=== PATIENT | female | born 1965 | race Two or more races ===

== ENCOUNTER 2019-02-24 03:11 | Inpatient (IN) | payer BC ==
--- NOTE | 2019-02-24 03:50 | PDOC ---
Attending Attestation - Resident Resident Name: Starla Nguyen - ED Attending Attestation I have performed the following: I have examined & evaluated the patient, The case was reviewed & discussed with the resident, I agree w/resident's findings & plan - HPI HPI: 02/24/19 06:56 see resident hpi - Physicial Exam PE: 02/24/19 06:56 agree with resident exam - Medical Decision Making 02/24/19 06:56 53-year-old female with upper abdominal pain after eating CT scan consistent with gallbladder disease and possible cholecystitis We will sign out right upper quadrant ultrasound to dayshift
--- NOTE | 2019-02-24 04:17 | PDOC ---
History of Present Illness - General Chief Complaint: Pain, Acute Stated Complaint: ABD PAIN Time Seen by Provider: 02/24/19 03:43 - History of Present Illness Initial Comments: 02/24/19 04:47 53 year old woman with a history of HTN who presents with diffuse abdominal pain that occurred around 2000 tonight after eating Indonesian food from a restaurant. The patient reports the pain is pressure like and she had one episode of nbnb vomiting. The patient is nonradiating and she is able to keep down water. She has no other complaints at this time. ROS GENERAL/CONSTITUTIONAL: No fever or chills. No weakness. HEAD, EYES, EARS, NOSE AND THROAT: No sore throat. CARDIOVASCULAR: No chest pain or shortness of breath RESPIRATORY: No cough, wheezing, or hemoptysis. GASTROINTESTINAL: + nausea, vomiting, No diarrhea or constipation. GENITOURINARY: No dysuria, frequency, or change in urination. MUSCULOSKELETAL: No joint or muscle swelling or pain. No neck or back pain. SKIN: No rash NEUROLOGIC: No headache, vertigo, loss of consciousness, or change in strength/ sensation. ENDOCRINE: No increased thirst. No abnormal weight change PE GENERAL: Awake, alert, and fully oriented, in no acute distress HEAD: No signs of trauma, normocephalic, atraumatic EYES: EOMI, sclera anicteric, conjunctiva clear ENT: oropharynx clear without exudates. Moist mucosa NECK: Normal ROM, supple, LUNGS: No distress, speaks full sentences, clear to auscultation bilaterally HEART: Regular rate and rhythm, normal S1 and S2, no murmurs, rubs or gallops, peripheral pulses normal and equal bilaterally. ABDOMEN: Soft, +mild LUQ and RUQ ttp, No guarding, no rebound. No masses EXTREMITIES : Normal inspection, Normal range of motion, no edema. No clubbing or cyanosis. NEUROLOGICAL: Cranial nerves II through XII grossly intact. Normal speech, no focal sensorimotor deficits SKIN: Warm, Dry, normal turgor, no rashes or lesions noted MDM DDX including but not limited to: cholelithiasis appendicitis gastroenteritis r/o acs ED Course: EKbpm nsr, no interval abnormalities, narrow QRS, ST and T wave segments and morphology normal. labs wnl CT: cholelithiasis w/ dilated gallbladder lumen and a 2.5cm stone near gallbladder neck Abd US pending will sign out to day team Starla Nguyen PGY2 Emergency Medicine 02/24/19 06:57 Past History - Past Medical History Allergies/Adverse Reactions: Allergies Allergy/AdvReac Type Severity Reaction Status Date / Time No Known Allergies Allergy Verified 02/24/19 03:40 Home Medications: Ambulatory Orders Bisoprolol/Hydrochlorothiazide [Bisoprolol-Hctz 10-6.25 mg Tab] 1 each PO DAILY 12/20/14 Ibuprofen [Motrin -] 600 mg PO QID PRN #30 tablet 02/25/19 Meclizine HCl [Antivert -] 25 mg PO PRN PRN #30 tablet 02/25/19 HTN: Yes - Psycho Social/Smoking Cessation Hx Smoking History: Never smoked Have you smoked in the past 12 months: No Information on smoking cessation initiated: No Hx Alcohol Use: No Drug/Substance Use Hx: No Substance Use Type: None *Physical Exam - Vital Signs Last Vital Signs Temp Pulse Resp BP Pulse Ox 98.7 F 82 20 146/95 98 02/24/19 03:30 02/24/19 03:30 02/24/19 03:30 02/24/19 03:30 02/24/19 03:30 ED Treatment Course - LABORATORY CBC & Chemistry Diagram: 02/25/19 10:50 02/25/19 10:50 Discharge - Discharge Information Problems reviewed: Yes Clinical Impression/Diagnosis: Biliary colic Cholelithiasis Qualifiers: Cholelithiasis location: gallbladder Cholecystitis presence: without cholecystitis Biliary obstruction: without biliary obstruction Qualified Code(s) : K80.20 - Calculus of gallbladder without cholecystitis without obstruction Condition: Improved Disposition: HOME - Follow up/Referral - Patient Discharge Instructions - Post Discharge Activity
[2019-02-24] MEDS ORDERED: ACETAMINOPHEN 1000 MG/100 ML VIAL (NON FORMULARY) IVPB ONE (04:21)
[2019-02-24] MEDS ORDERED: ACETAMINOPHEN INJECTION 100 ML IVPB ONE (04:41)
[2019-02-24 04:58] LABS: BASO % 0.7 % (0-2.0); EOS % 0.3 % (0-4.5); HEMATOCRIT 43.9 % (32.4-45.2); HEMOGLOBIN 14.4 GM/dL (10.7-15.3); LYMPH % 13.9 % (8-40); MCH 27.8 pg (25.7-33.7); MCHC 32.9 g/dl (32.0-36.0); MEAN CELL VOLUME 84.5 fl (80-96); MEAN PLT VOLUME 8.7 fl (7.5-11.1); MONO % 3.9 % (3.8-10.2); NEUT % 81.2 % (42.8-82.8); PLATELET COUNT 319 K/MM3 (134-434); RDW 13.9 % (11.6-15.6); WHITE BLOOD COUNT 12.3 K/mm3 (4.0-10.0)
[2019-02-24 05:30] LABS: ALBUMIN 3.8 g/dl (3.4-5.0); BILIRUBIN,TOTAL 0.6 mg/dL (0.2-1); BLOOD UREA NITROGEN 17.2 mg/dL (7-18); CALCIUM 9.3 mg/dL (8.5-10.1); CREATININE 0.9 mg/dL (0.55-1.3); POTASSIUM 4.1 mmol/L (3.5-5.1)
[2019-02-24] MEDS ORDERED: HYDROmorphone HCL CARPU-JECT 2 MG/1 ML DISP.SYRIN IVPUSH ONE (07:06)
[2019-02-24] MEDS ORDERED: HYDROmorphone HCl 2 MG/ML VIAL ONE (07:13)
--- NOTE | 2019-02-24 07:28 | PDOC ---
*Physical Exam - Vital Signs Last Vital Signs Temp Pulse Resp BP Pulse Ox 98.7 F 82 20 146/95 98 02/24/19 03:30 02/24/19 03:30 02/24/19 03:30 02/24/19 03:30 02/24/19 03:30 - Physical Exam 02/24/19 07:35 Mild HTN, otherwise AF with stable vitals WDW woman, NAD, appears stated age No central cyanosis, well perfused Normal WOB, speaking full sentences, no cough or wheeze Abdomen TTP, mostly RUQ CN grossly intact, Alert and oriented Normal mood and affect ED Treatment Course - LABORATORY CBC & Chemistry Diagram: 02/24/19 04:20 02/24/19 04:20 - ADDITIONAL ORDERS Additional order review: Laboratory Results 02/24/19 02/24/19 04:20 04:20 Sodium 137 Potassium 4.1 Chloride 104 Carbon Dioxide 24 Anion Gap 9 BUN 17.2 Creatinine 0.9 Est GFR (CKD-EPI)AfAm 85.80 Est GFR (CKD-EPI)NonAf 74.03 Random Glucose 145 H Calcium 9.3 Total Bilirubin 0.6 AST 20 ALT 23 Alkaline Phosphatase 71 Troponin I < 0.02 Total Protein 8.0 Albumin 3.8 Lipase 137 Beta HCG, Quant 3.9 02/24/19 04:20 RBC 5.20 MCV 84.5 MCHC 32.9 RDW 13.9 MPV 8.7 Neutrophils % 81.2 Lymphocytes % 13.9 Monocytes % 3.9 Eosinophils % 0.3 Basophils % 0.7 - Medications Given in the ED: ED Medications Discontinued Medications Generic Name Dose Route Start Last Admin Trade Name Laura PRN Reason Stop Dose Admin Acetaminophen 1,000 mg 02/24/19 04:21 02/24/19 04:52 Ofirmev Injection - IVPB 02/24/19 04:22 1,000 mg ONCE ONE Administration Medical Decision Making - Medical Decision Making 02/24/19 07:27 53yo F with cholelithiasis, pending RUQ US to evaluate for cholecystitis. Labs notable only for mild leukocytosis Patient just received 0.5 Dilaudid Complaining of nausea, will give zofran if nausea persists s/p pain control Dispo Pending 02/24/19 09:28 - RUQ US without thickening, distention, fluid, or obstruction - no evidence of acute cholecystitis - Patient with continued pain and tenderness s/p dilaudid and zofran - Given NS @ 125, Made NPO - family aware - Admit for biliary colic / cholelithiasis (PCP: Carie Fuentes) for likely HIDA Scan - Reaching out to Surgery 02/24/19 09:41 - Spoke with Dr. Pedroza who will evaluate the patient - Admit Med/Surg Hospitalist, plan for HIDA Discharge - Discharge Information Problems reviewed: Yes Clinical Impression/Diagnosis: Biliary colic Cholelithiasis Qualifiers: Cholelithiasis location: gallbladder Cholecystitis presence: without cholecystitis Biliary obstruction: without biliary obstruction Qualified Code(s) : K80.20 - Calculus of gallbladder without cholecystitis without obstruction Condition: Guarded - Admission Yes - Follow up/Referral Referrals: Carie Galloway [Primary Care Provider] - - Patient Discharge Instructions - Post Discharge Activity
[2019-02-24] MEDS ORDERED: ONDANSETRON 4 MG/2 ML VIAL IVPUSH ONE ×2 (07:30→08:13)
[2019-02-24] MEDS ORDERED: ONDANSETRON 4 MG/2 ML VIAL ONE (08:13)
[2019-02-24] MEDS ORDERED: SODIUM CHLORIDE 1,000 ML IV SCH ×2 (09:30→11:15)
[2019-02-24] MEDS ORDERED: MORPHINE SULFATE 2 MG/ML VIAL IVPUSH PRN (11:08)
[2019-02-24] MEDS ORDERED: ACETAMINOPHEN 1000 MG/100 ML VIAL (NON FORMULARY) IVPB PRN ×2 (11:10→17:53)
[2019-02-24] MEDS ORDERED: ONDANSETRON 4 MG/2 ML VIAL IVPUSH PRN ×3 (11:11→17:53)
--- NOTE | 2019-02-24 11:46 | HP ---
Hospitalist Medicine Admission 53 y/o Iranian-speaking F with PMH HTN, vertigo who presents for abdominal pain over the past day. Per pt, her sx started yesterday after she ate chicken and potatoes from a restaurant. States this is similar to what she eats normally. Soon after, she developed sharp pain in her RUQ, without radiation. States it was 10/10, colicky and intermittent. Was alleviated by the meds she received in the ED (dilaudid, tylenol). Was also a/w nausea and 1 episode of NBNB emesis. For this reason, pt presented to ED for evaluation. In ED, abd sono revealed gallstones w/o evidence of cholecystitis, and fatty liver vs. hepatocellular dz. On CTAP, pt with mildly distended GB with multiple calculi. Sx was contacted by ER and recommended HIDA. Currently, pt denies PALM, fever, chills, SOB, chest pain or changes in urinary or bowel function. Pt's mother had a lap christa. PMH: as above PsxH: "ovarian sx" meds: as in chart, meclizine PRN, bisoprolol/hctz allergies: NKDA FH: as above, mother - lap christa SH: denies cigarette, alcohol or drug use Allergies No Known Allergies Allergy (Verified 02/24/19 03:40) HOME MEDICATIONS: Home Medications Medication Instructions Recorded Bisoprolol/Hydrochlorothiazide 1 each PO DAILY 12/20/14 [Bisoprolol-Hctz 10-6.25 mg Tab] Meclizine HCl [Antivert -] 25 mg PO PRN PRN 02/24/19 PHYSICAL EXAMINATION Vital Signs - 24 hr 02/24/19 11:33 Temperature 97.8 F Pulse Rate Pulse Rate [ 89 Left Radial] Respiratory 18 Rate Blood Pressure Blood Pressure 125/79 [Right Arm] O2 Sat by Pulse 96 Oximetry (%) general: resting in bed, in NAD HEENT: NCAT neck: supple cardio: S1, S2 RRR. no r/m/g pulm: CTA B/l. no accessory m usage abdomen: +obese, +TTP in RUQ, +christian's, normoactive bowel sounds LE: 2+ pulses, no edema neuro: rn staffing 2-12 grossly intact Laboratory Results - last 24 hr 02/24/19 02/24/1920 04:20 04:20 04:20 WBC 12.3 H RBC 5.20 Hgb 14.4 Hct 43.9 MCV 84.5 MCH 27.8 MCHC 32.9 RDW 13.9 Plt Count 319 MPV 8.7 Absolute Neuts (auto) 10.0 H Neutrophils % 81.2 Lymphocytes % 13.9 Monocytes % 3.9 Eosinophils % 0.3 Basophils % 0.7 Nucleated RBC % 0 Sodium 137 Potassium 4.1 Chloride 104 Carbon Dioxide 24 Anion Gap 9 BUN 17.2 Creatinine 0.9 Est GFR (CKD-EPI)AfAm 85.80 Est GFR (CKD-EPI)NonAf 74.03 Random Glucose 145 H Calcium 9.3 Total Bilirubin 0.6 AST 20 ALT 23 Alkaline Phosphatase 71 Troponin I < 0.02 Total Protein 8.0 Albumin 3.8 Lipase 137 Beta HCG, Quant 3.9 Imaging 02/24/19: CTAP: mild diffuse fatty infiltration of the liver, mildly distended GB with multiple calculi, no additional evidence of acute pathology in abdomen or pelvis 02/24/19: Abd sono: nonvisualization of pancreas due to overlying bowel gas, gallstones without sono evidence of acute christa. fatty liver vs. hepatocellular disease. 02/24/19: EKG: NSR, rate 76bpm, qtc 447ms ASSESSMENT/PLAN: 53 y/o Iranian-speaking F with PMH HTN, vertigo who presents for abdominal pain over the past day. #Cholecystitis, cholelithiasis -with intermittent abdominal pain in RUQ, w/ obesity, family hx of lap christa -w/ evidence of cholelithiasis on imaging -s/p lap christa, lavage, lysis of adhesions - PO Day 0 -f/u a1c, lipid profile -c/w IVF, incentive spirometer -morphine , tylenol, roxicodone PRN for pain per sx -started on zosyn (Day 1) -Sx consult: Dr. Pedroza -ID: Dr. Rubio #HTN- controlled -c/w bisoprolol/HCTZ #vertigo -currently w/o complaint -can hold meclizine for now #F/E/N IV LR 75 cc/hr continue to follow lytes reg diet #PPX DVT: lovenox #Dispo admitted to med-surg Visit type - Emergency Visit Emergency Visit: Yes ED Registration Date: 02/24/19 Care time: The patient presented to the Emergency Department on the above date and was hospitalized for further evaluation of their emergent condition. - New Patient This patient is new to me today: Yes Date on this admission: 02/24/19 - Critical Care Critical Care patient: No
--- NOTE | 2019-02-24 11:50 | EKG ---
Test Reason : Blood Pressure : / mmHG Vent. Rate : 076 BPM Atrial Rate : 076 BPM P-R Int : 166 ms QRS Dur : 102 ms QT Int : 398 ms P-R-T Axes : 043 069 046 degrees QTc Int : 447 ms NORMAL SINUS RHYTHM POSSIBLE LATERAL INFARCT , AGE UNDETERMINED ABNORMAL ECG NO PREVIOUS ECGS AVAILABLE Confirmed by SAVITA BOSWELL MD ([id number]) on 02/24/2019 11:50:06 AM Referred By: Confirmed By:SAVITA BOSWELL MD
[2019-02-24] MEDS ORDERED: fentaNYL CITRATE 250 MCG/5 ML VIAL ONE (12:05)
[2019-02-24] MEDS ORDERED: ROCURONIUM BROMIDE 50 MG/5 ML SYRINGE ONE (12:05)
[2019-02-24] MEDS ORDERED: MIDAZOLAM HCL 2 MG/2 ML SINGLE DOSE VIAL ONE (12:05)
--- NOTE | 2019-02-24 12:39 | OP ---
Operative Note - Note: Operative Date: 02/24/19 Pre-Operative Diagnosis: acute cholecystitis, cholelithiasis Operation: laparoscopic cholecystectomy, lavage, lysis of adhesions Findings: thickened, inflamed gb, omental adhesions to abd wall Post-Operative Diagnosis: Same as Pre-op Surgeon: Clayton Pedroza Air Export Operations Agent: David Cooper Anesthesiologist/CHIEF GREEN OFFICER: Olvin Heredia Anesthesia: General Specimens Removed: gb Estimated Blood Loss (mls): 50 Operative Report Dictated: Yes
[2019-02-24] MEDS ORDERED: oxyCODONE HCL 5 MG TABLET PO PRN (12:40)
[2019-02-24] MEDS ORDERED: morphine SULFATE 4 MG/ML VIAL IVPB PRN (12:40)
[2019-02-24] MEDS ORDERED: LACTATED RINGERS SOLUTION 1,000 ML IV SCH (12:45)
[2019-02-24] MEDS ORDERED: PIPERACILLIN/TAZOBACTAM 3.375 GM VIAL IVPB ONE ×3 (12:49→18:22)
[2019-02-24] MEDS ORDERED: PIPERACILLIN/TAZOB 3.375 GM 3.375 GM in DEXTROSE 5%-WATER - 50 ML IVPB ONE ×2 (13:00→17:53)
--- NOTE | 2019-02-24 13:03 | CONS ---
DATE OF CONSULTATION: 02/24/2019 REASON FOR CONSULTATION: Acute cholecystitis, cholelithiasis. This is an emergency room consultation at the request of the emergency room physician. BRIEF HISTORY: This is a 53-year-old female who presented to [facility] Emergency Room with 1-day history of right upper quadrant abdominal pain, nausea, and vomiting after eating chicken. While there, she had a CAT scan of her abdomen and pelvis, which showed a distended gallbladder with stones. She had an ultrasound done, which also showed gallstones and a distended gallbladder. There was noted no thickening or no pericholecystic fluid. Patient also was noted to have an elevated white blood cell count of 12,000. Her chemistries are unremarkable with normal liver function tests. Request was made for surgical evaluation. PAST MEDICAL HISTORY: Significant for hypertension and vertigo. PAST SURGICAL HISTORY: Includes an ovarian surgery done through a Pfannenstiel incision. FAMILY HISTORY: Significant for a mother who had a cholecystectomy for gallbladder disease. HOME MEDICATIONS: Include meclizine, bisoprolol, and hydrochlorothiazide. ALLERGIES: She has no known drug allergies. SOCIAL HISTORY: Negative for alcohol. Negative for tobacco. REVIEW OF SYSTEMS: General: Denies fatigue or malaise. Cardiac: Denies chest pain or palpitations. Respiratory: No shortness of breath or wheeze. Gastrointestinal: As stated in HPI. Denies blood in her vomit, denies diarrhea, denies recent weight loss, denies blood in her stool. Genitourinary: Denies dysuria. Musculoskeletal: Denies joint pain. Psychiatric: Denies anxiety, depression, or hearing voices. PHYSICAL EXAMINATION: General: This is an obese 53-year-old female in no distress. Vital Signs: She is currently afebrile. HEENT: Her head is normocephalic. Sclerae anicteric. Neck: Supple. Chest: Clear. Abdomen: Soft. She has a well-healed Pfannenstiel incision. She has no obvious hernias. She has significant right upper quadrant tenderness with rebound and guarding. She has minimal tenderness in the epigastrium. Extremities: No clubbing, cyanosis, or edema. DIAGNOSTIC DATA: On review of her laboratory, her white blood cell count is 12.3 without a shift. Her chemistries are unremarkable. Her imaging is as stated in HPI. ASSESSMENT: This is a 53-year-old female with nausea, vomiting, right upper quadrant pain, peritoneal findings in right upper quadrant, leukocytosis and CAT scan as well as ultrasound evidence of gallstones and a distended gallbladder. Clinically, this is acute cholecystitis. RECOMMENDATIONS: Recommend admission to the hospital. Recommend intravenous antibiotics. We will start Zosyn to cover E. coli and other biliary-related new. At this point, because of the patient's persistent pain and pertinent findings, would recommend proceeding with cholecystectomy. I believe she will do poorly with simply medical management. Risks and benefits of surgery have been explained to patient in detail. These are including, but not limited to, the possibility of conversion to open, the possibility of common bile duct injury, the possibility of cystic duct stump leak, the possibility of injury to viscera, the possibility of blood loss requiring blood transfusion, the possibility of future hernia, possibility of future obstruction plus a multitude of medical risks including, but not limited to, cardiac, neurologic, pulmonary, and vascular complications, even . Patient understands these risks and is agreeable to surgery. She states her mother had her gallbladder out, and she wants hers out as well. At this point, we move in the direction of surgery. The patient is also offered medical management as well as percutaneous drainage and declined both options. She prefers a more definitive nature of surgery, likely decreased length of stay, the ability to pathologically evaluate the gallbladder, and the prevention of future recurrence. DO ANNE MARIE DAVISON/[id number]
[2019-02-24] MEDS ORDERED: NEOSTIGMINE METHYLSULFATE 0.5 MG/ML - 10 ML MDV ONE (14:01)
[2019-02-24] MEDS ORDERED: GLYCOPYRROLATE 0.2 MG/1 ML VIAL ONE (14:02)
[2019-02-24] MEDS ORDERED: DEXAMETHASONE SOD PHOSPHATE 4 MG/1 ML VIAL ONE (14:02)
[2019-02-24] MEDS ORDERED: KETOROLAC TROMETHAMINE 30 MG/1 ML VIAL ONE (14:02)
[2019-02-24 14:05] LABS: CHOLESTEROL 198 mg/dL (50-200); HDL CHOLESTEROL 53 mg/dL (40-60); LDL CHOLESTEROL (ONLY SJRH) 128 mg/dL (5-100); LIPASE 149 U/L (73-393); TRIGLYCERIDES 92 mg/dL (0-150)
--- NOTE | 2019-02-24 14:56 | OP ---
DATE OF OPERATION: 02/24/2019 PREOPERATIVE DIAGNOSIS: Acute cholecystitis, cholelithiasis. POSTOPERATIVE DIAGNOSIS: Acute cholecystitis, cholelithiasis. PROCEDURE: Laparoscopic cholecystectomy, lavage, lysis of adhesions. SURGEON: Clayton Pedroza DO BORING MACHINE OPERATOR HORIZONTAL: JARON Oconnor ANESTHESIOLOGIST: Olvin Heredia MD (general) SPECIMEN: Gallbladder. INTRAOPERATIVE FINDINGS: There were omental adhesions to the abdominal wall and a thick and inflamed, edematous gallbladder with large stones consistent with acute cholecystitis. BLOOD LOSS: 50 mL. DRAINS: None. DISPOSITION: To recovery in stable condition. BRIEF HISTORY: This is a 53-year-old female who presented to [facility] Room with complaints and signs and symptoms of acute cholecystitis. She had ultrasound and CAT scan evidence that supported gallstone disease and clinically had acute cholecystitis. She presents now for surgery. She received Zosyn antibiotic prior to incision. DESCRIPTION OF PROCEDURE: The patient was placed in supine position. After general anesthesia was initiated, the abdomen was prepped and draped in a sterile fashion. A transverse incision was made infraumbilical with scalpel used to go through skin and subcutaneous tissue. The fascia was lifted with a Giselle clamp. Veress needle was inserted, and pneumoperitoneum was created. An 11-mm trocar was placed followed by insertion of a 10-mm 0-degree laparoscope. An additional 11-mm trocar was placed subxiphoid, and two 5-mm trocars were placed right upper quadrant. The patient had omentum that was adhesed to near the umbilical trocar site. The camera was switched to the subxiphoid site, and a sharp lysis of adhesion was done in order to get the omentum down in order to enable proper closure of the infraumbilical trocar site. There was also noted to be no bowel involved, just the omentum adhesed to this area. At this point, attention was turned back to the gallbladder. It was thick and inflamed and edematous consistent with acute cholecystitis. Veress needle decompression was done. There was green bile within it. The fundus was lifted cephalad. The infundibulum retracted laterally. The peritoneal peel was dissected down exposing cystic duct with a branch cystic artery. Both were clipped and divided. The gallbladder was then liberated from the liver bed using electrocautery. Hemostasis was maintained using electrocautery. The gallbladder was then placed in a specimen bag, removed through the infraumbilical trocar site. There was significant skin lengthening and fascial dilatation required in order to deliver this gallbladder. A vigorous lavage was done, and all return was clear. There was no bleeding noted. Trocars were removed under direct visualization as pneumoperitoneum was released. The fascia of the infraumbilical trocar site was closed with multiple interrupted 0 Vicryl sutures. The 4 skin incisions were closed with Biosyn, Dermabond dressing was placed. Overall, the patient tolerated the procedure well. No complications. The operation was terminated. DO ANNE MARIE DAVISON/[id number] MTDD
--- NOTE | 2019-02-24 15:28 | SURG ---
Surgery Legal Recruiter Note Legal Recruiter: David Cooper PA-C Date of Service: 02/24/19 Diagnosis: acute cholecystitis, cholelithiasis Procedure: laparoscopic cholecystectomy, lavage, lysis of adhesions I was present for the entirety of the operative procedure. For further detail, please refer to operative report. Visit type - Case Type Case Type: ED Admission - Emergency Emergency Visit: Yes ED Registration Date: 02/24/19 Care time: The patient presented to the Emergency Department on the above date and was hospitalized for further evaluation of their emergent condition. - New patient This patient is new to me today: Yes Date on this admission: 02/24/19 - Critical Care Critical Care patient: No
[2019-02-24] MEDS ORDERED: PIPERACILLIN/TAZOB 3.375 GM 3.375 GM in DEXTROSE 5%-WATER - 50 ML IVPB SCH (18:00)
[2019-02-24] MEDS ORDERED: DEXTROSE 5%-WATER - 50 ML IVPB ONE (18:23)
[2019-02-24] MEDS: SODIUM CHLORIDE 1,000 ML IV SCH (18:26)
--- NOTE | 2019-02-24 19:33 | PN ---
Teaching Attending Note Name of Resident: Bronwyn Bowman ATTENDING PHYSICIAN STATEMENT I saw and evaluated the patient. I reviewed the resident's note and discussed the case with the resident. I agree with the resident's findings and plan as documented. SUBJECTIVE: Seen and examined at bedside. Tired post-op OBJECTIVE: Vital Signs - 24 hr 02/24/19 02/24/19 02/24/19 03:30 07:16 07:29 Temperature 98.7 F 98 F Pulse Rate 82 Pulse Rate [ 78 Left Radial] Respiratory 20 18 Rate Blood Pressure 146/95 Blood Pressure 138/83 [Right Arm] O2 Sat by Pulse 98 100 100 Oximetry (%) 02/24/19 02/24/19 02/24/19 11:33 14:48 15:05 Temperature 97.8 F 98.1 F Pulse Rate 72 72 Pulse Rate [ 89 Left Radial] Respiratory 18 22 H 20 Rate Blood Pressure 142/74 127/62 Blood Pressure 125/79 [Right Arm] O2 Sat by Pulse 96 93 L 95 Oximetry (%) 02/24/19 02/24/19 02/24/19 15:20 15:35 15:50 Temperature Pulse Rate 60 63 69 Pulse Rate [ Left Radial] Respiratory 20 21 H 23 H Rate Blood Pressure 128/71 119/78 123/75 Blood Pressure [Right Arm] O2 Sat by Pulse 97 99 95 Oximetry (%) 02/24/19 02/24/19 02/24/19 16:05 16:20 16:35 Temperature Pulse Rate 78 63 86 Pulse Rate [ Left Radial] Respiratory 18 20 22 H Rate Blood Pressure 120/79 130/79 119/73 Blood Pressure [Right Arm] O2 Sat by Pulse 93 L 93 L 94 L Oximetry (%) 02/24/19 02/24/19 02/24/19 16:50 17:05 17:14 Temperature 98 F Pulse Rate 79 62 82 Pulse Rate [ Left Radial] Respiratory 18 17 17 Rate Blood Pressure 127/79 120/77 122/82 Blood Pressure [Right Arm] O2 Sat by Pulse 95 95 95 Oximetry (%) 02/24/19 18:00 Temperature 98.4 F Pulse Rate 83 Pulse Rate [ Left Radial] Respiratory 20 Rate Blood Pressure 111/76 Blood Pressure [Right Arm] O2 Sat by Pulse 97 Oximetry (%) PE: Gen: NAD CVS: S1, S2 RRR. no r/m/g Lungs: CTA B/l, unlabored Abd: +obese, RUQ tenderness LE: 2+ pulses, no edema Current Medications Generic Name Dose Route Start Last Admin Trade Name Freq PRN Reason Stop Dose Admin Acetaminophen 1,000 mg 02/24/19 17:53 02/24/19 18:37 Ofirmev Injection - IVPB 1,000 mg Q6H PRN Administration PAIN LEVEL 4 - 6 Enoxaparin Sodium 40 mg 02/25/19 10:00 Lovenox - SQ DAILY [facility] Fentanyl 50 mcg 02/24/19 12:39 Sublimaze Injection - IVPUSH [id number] PRN PAIN-PACU ORDER X 4 DOSES ONLY Lactated Ringer's 1,000 mls @ 75 mls/hr 02/24/19 12:45 02/24/19 18:38 Lactated Ringers Solution IV Not Given [facility] Piperacillin Sod/Tazobactam 50 mls @ 100 mls/hr 02/24/19 18:00 Sod 3.375 gm/ Dextrose IVPB 02/25/19 10:29 Q8H-IV [facility] Protocol Sodium Chloride 1,000 mls @ 100 mls/hr 02/24/19 17:53 02/24/19 18:26 Normal Saline - IV 100 mls/hr ASDIR DAMIEN Administration Morphine Sulfate 8 mg 02/24/19 12:40 Morphine Sulfate IVPB Q3H PRN PAIN LEVEL 7 - 10 Non-Formulary Medication 1 each 02/25/19 10:00 Bisoprolol/Hydrochlorothiazide [Bisoprolol-Hctz 10-6.25 Mg Tab] PO DAILY [facility] Ondansetron HCl 4 mg 02/24/19 12:39 Zofran Injection IVPUSH Q6H PRN NAUSEA AND/OR VOMITING Ondansetron HCl 4 mg 02/24/19 17:53 Zofran Injection IVPUSH Q8H PRN NAUSEA Oxycodone HCl 7.5 mg 02/24/19 12:40 Roxicodone - PO Q4H PRN PAIN LEVEL 4 - 6 Pantoprazole Sodium 40 mg 02/25/19 10:00 Protonix Iv IVPUSH DAILY [facility] Laboratory Tests 02/24/19 02/24/19 02/24/19 04:20 04:20 04:20 WBC 12.3 H RBC 5.20 Hgb 14.4 Hct 43.9 MCV 84.5 MCH 27.8 MCHC 32.9 RDW 13.9 Plt Count 319 MPV 8.7 Absolute Neuts (auto) 10.0 H Neutrophils % 81.2 Lymphocytes % 13.9 Monocytes % 3.9 Eosinophils % 0.3 Basophils % 0.7 Nucleated RBC % 0 Sodium 137 Potassium 4.1 Chloride 104 Carbon Dioxide 24 Anion Gap 9 BUN 17.2 Creatinine 0.9 Est GFR (CKD-EPI)AfAm 85.80 Est GFR (CKD-EPI)NonAf 74.03 Random Glucose 145 H Hemoglobin A1c % Calcium 9.3 Total Bilirubin 0.6 AST 20 ALT 23 Alkaline Phosphatase 71 Troponin I < 0.02 Total Protein 8.0 Albumin 3.8 Triglycerides 92 Cholesterol 198 Total LDL Cholesterol 128 H HDL Cholesterol 53 Lipase 137 149 Beta HCG, Quant 3.9 Blood Type Antibody Screen 02/24/19 02/24/19 04:20 12:25 WBC RBC Hgb Hct MCV MCH MCHC RDW Plt Count MPV Absolute Neuts (auto) Neutrophils % Lymphocytes % Monocytes % Eosinophils % Basophils % Nucleated RBC % Sodium Potassium Chloride Carbon Dioxide Anion Gap BUN Creatinine Est GFR (CKD-EPI)AfAm Est GFR (CKD-EPI)NonAf Random Glucose Hemoglobin A1c % 6.1 Calcium Total Bilirubin AST ALT Alkaline Phosphatase Troponin I Total Protein Albumin Triglycerides Cholesterol Total LDL Cholesterol HDL Cholesterol Lipase Beta HCG, Quant Blood Type A POSITIVE Antibody Screen Negative All imaging reports reviewed ASSESSMENT AND PLAN: 53 y/o F with PMH HTN, vertigo who presents for abdominal pain x 1 day 1) Acute cholecystitis -POD #1 lap christa, lysis of adhesions -iv abx -pain control/antiemetics -PPI -IVF -surgery eval post op appreciated -ID following HTN Vertigo -resume home meds
[2019-02-24 20:23] VITALS: BMI 32.8
[2019-02-24] MEDS ORDERED: FLU VACCINE QUAD 60 MCG/0.5 ML (MDV 19-20) IM ONE (21:30)
[2019-02-25] MEDS: SODIUM CHLORIDE 1,000 ML IV SCH (03:43)
--- NOTE | 2019-02-25 08:20 | PN ---
Progress Note (short form) - Note Progress Note: GENERAL SURGERY POD #1 s/p laparoscopic cholecystectomy, lavage, lysis of adhesions Alert. C/o mild incisional tenderness. Adequate pain control with medications ordered. She is OOB and ambulating unassisted. Voiding spontaneously. Tolerating PO diet. Denies n/v/f/c, CP, SOB or SUAREZ. AVSS. Afebrile. Gen: nad ABD: obese habitus. All surgical ports c/d/i. No hematomas. LE: soft, supple, nt. Problem List - Problems (1) Cholelithiasis Assessment/Plan: POD #1 s/p laparoscopic cholecystectomy, lavage, lysis of adhesions patient is cleared for DC from surgical standpoint. Patient to f/u w/ Dr. Pedroza as outlined in DC PLAN. On behalf of Dr. Pedroza, thank you for the opportunity to participate in your patient's care. Code(s): K80.20 - CALCULUS OF GALLBLADDER W/O CHOLECYSTITIS W/O OBSTRUCTION Qualifiers: Cholelithiasis location: gallbladder Cholecystitis presence: without cholecystitis Biliary obstruction: without biliary obstruction Qualified Code(s): K80.20 - Calculus of gallbladder without cholecystitis without obstruction (2) Biliary colic Code(s): K80.50 - CALCULUS OF BILE DUCT W/O CHOLANGITIS OR CHOLECYST W/O OBST
--- NOTE | 2019-02-25 09:41 | CON.ID ---
Consult Consult Specialty:: infectious diseases Referred by:: Reason for Consultation:: choleycystitis - History of Present Illness Chief Complaint: abd pain History of Present Illness: 53 y/o Upper Sorbian-speaking F with PMH HTN, vertigo who presents for abdominal pain over the past day. Per pt, her sx started yesterday after she ate chicken and potatoes from a restaurant. States this is similar to what she eats normally. Soon after, she developed sharp pain in her RUQ, without radiation. States it was 10/10, colicky and intermittent. patient was worked up and found to ahve choleycystitis was seen by surgery team and taken to the operating room and was operated post op - History Source History Provided By: Patient, Family Member Limitations to Obtaining History: Language Barrier - Past Medical History ...: No - Alcohol/Substance Use Hx Alcohol Use: No - Smoking History Smoking history: Never smoked Have you smoked in the past 12 months: No Home Medications - Allergies Allergies/Adverse Reactions: Allergies Allergy/AdvReac Type Severity Reaction Status Date / Time No Known Allergies Allergy Verified 02/24/19 03:40 - Home Medications Home Medications: Ambulatory Orders Bisoprolol/Hydrochlorothiazide [Bisoprolol-Hctz 10-6.25 mg Tab] 1 each PO DAILY 12/20/14 Meclizine HCl [Antivert -] 25 mg PO PRN PRN 02/24/19 Review of Systems - Review of Systems Constitutional: reports: No Symptoms Eyes: reports: No Symptoms HENT: reports: No Symptoms Neck: reports: No Symptoms Cardiovascular: reports: No Symptoms Respiratory: reports: No Symptoms Gastrointestinal: reports: Abdominal Pain Genitourinary: reports: No Symptoms Musculoskeletal: reports: No Symptoms Integumentary: reports: No Symptoms Neurological: reports: No Symptoms Endocrine: reports: No Symptoms Hematology/Lymphatic: reports: No Symptoms Psychiatric: reports: No Symptoms Physical Exam Vital Signs: Vital Signs Temperature 98.5 F 02/25/19 09:00 Pulse Rate 87 02/25/19 09:00 Respiratory Rate 18 02/25/19 09:00 Blood Pressure 119/79 02/25/19 09:00 O2 Sat by Pulse Oximetry (%) 100 02/24/19 20:41 Constitutional: Yes: Well Nourished, No Distress, Calm HENT: Yes: Atraumatic, Normocephalic Cardiovascular: Yes: Regular Rate and Rhythm Respiratory: Yes: Regular, CTA Bilaterally Breast(s): Yes: Gynecomastia Extremities: Yes: WNL Wound/Incision: Yes: Dressing Dry and Intact Neurological: Yes: Alert, Oriented Psychiatric: Yes: Alert, Oriented Labs: CBC, BMP 02/24/19 04:20 02/24/19 04:20 Imaging - Results Cat Scan: Report Reviewed, Image Reviewed Ultrasound: Report Reviewed, Image Reviewed Assessment/Plan 53 y/o F with PMH HTN, vertigo who presents for abdominal pain x 1 day 1) Acute cholecystitis HTN Vertigo plan if patient tolerates food can stop abx d/w surgery on status of gal bladder if needed can switch to oral on discharge rest as per the team
[2019-02-25] MEDS ORDERED: DOCUSATE SODIUM 100 MG CAPSULE (FP) PO SCH (10:00)
[2019-02-25] MEDS ORDERED: PANTOPRAZOLE SODIUM 40 MG VIAL IVPUSH SCH (10:00)
[2019-02-25] MEDS ORDERED: POLYETHYLENE GLYCOL 3350 119 GM BTL PO SCH (10:00)
[2019-02-25] MEDS ORDERED: ENOXAPARIN NA (PORCINE) 40 MG/0.4 ML DISP.SYRIN SQ SCH (10:00)
[2019-02-25] MEDS ORDERED: PIPERACILLIN/TAZOBACTAM 3.375 GM VIAL IVPB ONE ×2 (10:19→16:57)
[2019-02-25] MEDS ORDERED: DEXTROSE 5%-WATER - 50 ML IVPB ONE ×2 (10:19→16:57)
[2019-02-25] MEDS: PIPERACILLIN/TAZOB 3.375 GM 3.375 GM in DEXTROSE 5%-WATER - 50 ML IVPB SCH ×2 (10:26→17:02)
[2019-02-25 11:51] LABS: BASO % 0.2 % (0-2.0); EOS % 0.1 % (0-4.5); HEMATOCRIT 37.3 % (32.4-45.2); HEMOGLOBIN 12.1 GM/dL (10.7-15.3); LYMPH % 14.7 % (8-40); MCH 27.8 pg (25.7-33.7); MCHC 32.3 g/dl (32.0-36.0); MEAN PLT VOLUME 8.3 fl (7.5-11.1); MONO % 5.4 % (3.8-10.2); NEUT % 79.6 % (42.8-82.8); PLATELET COUNT 253 K/MM3 (134-434); RBC 4.34 M/mm3 (3.60-5.2); RDW 14.4 % (11.6-15.6); WHITE BLOOD COUNT 15.1 K/mm3 (4.0-10.0)
[2019-02-25 12:09] LABS: BLOOD UREA NITROGEN 15.5 mg/dL (7-18); CALCIUM 8.5 mg/dL (8.5-10.1); CREATININE 0.8 mg/dL (0.55-1.3); MAGNESIUM 2.2 mg/dL (1.8-2.4); PHOSPHOROUS 1.5 mg/dL (2.5-4.9); POTASSIUM 3.5 mmol/L (3.5-5.1)
--- NOTE | 2019-02-25 14:33 | PN ---
Teaching Attending Note Name of Resident: Bronwyn Bowman ATTENDING PHYSICIAN STATEMENT I saw and evaluated the patient. I reviewed the resident's note and discussed the case with the resident. I agree with the resident's findings and plan as documented. SUBJECTIVE:No new complain OBJECTIVE:My physical examGENERAL: Well developed, well nourished. Awake and alert. No acute distress. HEENT: Normocephalic, atraumatic. PERRLA, EOMI. No conjunctival pallor. Sclera are non- icteric. Moist mucous membranes. Oropharynx is clear. NECK: Supple. Full ROM. No JVD. Carotid pulses 2+ and symmetric, without bruits. No thyromegaly. No lymphadenopathy. CARDIOVASCULAR: Regular rate and rhythm. No murmurs, rubs, or gallops. Distal pulses are 2+ and symmetric. PULMONARY: No evidence of respiratory distress. Lungs clear to auscultation bilaterally. No wheezing, rales or rhonchi. ABDOMINAL: Soft. Non-tender. Non-distended. No rebound or guarding. No organomegaly. Normoactive bowel sounds. MUSCULOSKELETAL Normal range of motion at all joints. No bony deformities or tenderness. No CVA tenderness. EXTREMITIES: No cyanosis. No clubbing. No edema. No calf tenderness. SKIN: Warm and dry. Normal capillary refill. No rashes. No jaundice. NEUROLOGICAL: Alert, awake, appropriate. Cranial nerves 2-12 intact. No deficits to light touch and temperature in face, upper extremities and lower extremities. No motor deficits in the in face, upper extremities and lower extremities. Normoreflexic in the upper and lower extremities. Normal speech. Toes are down- going bilaterally. Gait is normal without ataxia. PSYCHIATRIC: Cooperative. Good eye contact. Appropriate mood and affect. Patient is status post colonoscopy cholecystectomy she is comfortable no side effect she is eating well. She is going to go home today without antibiotic and Motrin for the pain follow-up with surgery in 1 week
[2019-02-25 14:45] VITALS: BP 130/74; PULSE 83; TEMP 97.4
--- NOTE | 2019-02-25 16:38 | DS ---
Physical Exam: SUBJECTIVE: Patient seen and examined at bedside. In good spirits. [employer] phone used for translation. Has been tolerating diet, and endorses BM. Cleared by surgery for d/c. OBJECTIVE: Vital Signs Period Temp Pulse Resp BP Sys/Cunha Pulse Ox Last 24 Hr 97.4 F-98.5 F 62-87 17-20 104-130/61-82 93-100 PHYSICAL EXAM GENERAL: The patient is awake, alert, and fully oriented, in no acute distress. HEAD: Normal with no signs of trauma. EYES: PERRL, extraocular movements intact, sclera anicteric, conjunctiva clear. ENT: Ears normal, nares patent, oropharynx clear without exudates, moist mucous membranes. NECK: Trachea midline, supple. LUNGS: Breath sounds equal, clear to auscultation bilaterally HEART: Regular rate and rhythm, S1, S2 without murmur, rub or gallop. ABDOMEN: Soft, obese, nontender, nondistended. surgical incisions c/d/i. no erythema or bleeding EXTREMITIES: 2+ pulses, warm, well-perfused, no edema. NEUROLOGICAL: Cranial nerves II through XII grossly intact. LABS Laboratory Results - last 24 hr 02/24/19 02/25/19 02/25/19 12:38 10:50 10:50 WBC 15.1 H RBC 4.34 Hgb 12.1 Hct 37.3 D MCV 86.0 MCH 27.8 MCHC 32.3 RDW 14.4 Plt Count 253 D MPV 8.3 Absolute Neuts (auto) 12.1 H Neutrophils % 79.6 Lymphocytes % 14.7 Monocytes % 5.4 Eosinophils % 0.1 Basophils % 0.2 Nucleated RBC % 0 Sodium 142 Potassium 3.5 Chloride 110 H Carbon Dioxide 26 Anion Gap 6 L BUN 15.5 Creatinine 0.8 Est GFR (CKD-EPI)AfAm 98.93 Est GFR (CKD-EPI)NonAf 85.36 Random Glucose 99 Calcium 8.5 Phosphorus 1.5 L Magnesium 2.2 Blood Type A POSITIVE 02/24/19 02/24/19 02/24/19 04:20 04:20 04:20 Hemoglobin A1c % 6.1 Calcium 9.3 Phosphorus Magnesium Total Bilirubin 0.6 AST 20 ALT 23 Alkaline Phosphatase 71 Troponin I < 0.02 Triglycerides 92 Cholesterol 198 Total LDL Cholesterol 128 H HDL Cholesterol 53 Lipase 137 149 Beta HCG, Quant 3.9 02/25/19 10:50 Hemoglobin A1c % Calcium 8.5 Phosphorus 1.5 L Magnesium 2.2 Total Bilirubin AST ALT Alkaline Phosphatase Troponin I Triglycerides Cholesterol Total LDL Cholesterol HDL Cholesterol Lipase Beta HCG, Quant Imaging 02/24/19: CTAP: mild diffuse fatty infiltration of the liver, mildly distended GB with multiple calculi, no additional evidence of acute pathology in abdomen or pelvis 02/24/19: Abd sono: nonvisualization of pancreas due to overlying bowel gas, gallstones without sono evidence of acute christa. fatty liver vs. hepatocellular disease. 02/24/19: EKG: NSR, rate 76bpm, qtc 447ms HOSPITAL COURSE: Date of Admission:02/24/19 Date of Discharge: 02/25/19 53 y/o Turkmen-speaking F with PMH HTN, vertigo who presents for abdominal pain over the past day. #Cholecystitis, cholelithiasis -with intermittent abdominal pain in RUQ, w/ obesity, family hx of lap christa -w/ evidence of cholelithiasis on imaging -s/p lap christa, lavage, lysis of adhesions - PO Day 1 -d/c home, cleared by sx. ibuprofen PRN for pain -started on zosyn (Day 1), however can monitor off abx per ID as pt tolerating PO -Sx consult: Dr. Novoa - to follow in office -ID: Dr. Rubio #HTN- controlled -c/w bisoprolol/HCTZ #vertigo -currently w/o complaint -can c/w meclizine PRN at home Minutes to complete discharge: 49 Discharge Summary Problems reviewed: Yes Reason For Visit: CHOLELITHIASIS,BILIARY COLIC Current Active Problems Biliary colic (Acute) Cholelithiasis (Acute) Condition: Improved - Instructions Diet, Activity, Other Instructions: Clayton Novoa D.O. [address], [address] [place], [place] [address] Post Anesthesia/IV Sedation Do not drive a motor vehicle or drink alcohol for the next 24 hours. Physical Activity Resume normal everyday activity as tolerated. No heavy lifting or exercise until seen by your surgeon. You may walk unlimited amounts and climb stairs. You may resume driving a car when you feel safe and comfortable behind the wheel. Wound Care / Bathing If you have a bandage, leave it on, and keep dry, for 48 to 72 hours. After that time, discard the outer bandage. If there are tapes on the skin under the outer bandage, leave then in place. They will peel of in the next 7-10 days. Do not peel them off. You may shower in 48-72 hours after the bandage removal. If there are tapes present on the skin, you may shower over them. If you have clear glue covering your incision, you may shower in 24 hours. It will peel off in the next 1-2 weeks. Diet There are no dietary restrictions. Eat healthy, high fiber foods. Drink 6-8 glasses of fluid each day. This will assist in keeping your bowels regular. Pain Management You may take Tylenol (Acetaminophen) or Ibuprofen (Motrin, Advil, etc) for mild pain. Prescription medication, if ordered, should be taken as prescribed for moderate to severe pain. Bruising Some black and blue areas on or around your surgical site are normal and will disappear in a few days. Male groin hernia patients may experience swelling and black/blueness in the penis and scrotum. This will resolve on its own in 1-[address] CHRIS / DR. BURROUGHS / DR. NOVOA FOR ANY OF THE FOLLOWING: * Severe pain not relieved by medication * Fever of 101 or higher * Excessive bleeding or drainage on dressing * Inability to urinate Call the office at [phone] for an appointment in 10-14 days. Referrals: Carie Galloway [Primary Care Provider] - Clayton Novoa MD [Staff Physician] - Disposition: HOME - Home Medications Comprehensive Discharge Medication List: Ambulatory Orders Bisoprolol/Hydrochlorothiazide [Bisoprolol-Hctz 10-6.25 mg Tab] 1 each PO DAILY 12/20/14 Ibuprofen [Motrin -] 600 mg PO QID PRN #30 tablet 02/25/19 Meclizine HCl [Antivert -] 25 mg PO PRN PRN #30 tablet 02/25/19 This patient is new to me today: No Emergency Visit: No Critical Care patient: No - Discharge Referral Referred to [facility] Med P.C.: No
[2019-02-25] MEDS ORDERED: SENNOSIDES 8.6MG TABLET (FP) PO SCH (22:00)
--- NOTE | 2019-02-28 15:54 | PATH ---
Surgical Pathology Report Patient Name: MATT DAS [facility]. Rec. #: [id number] /Age/Gender: 1965 (Age: 53) / F Account: [id number] Location: [address] [place] [address]/[facility] Taken: 02/24/2019 Received: 02/25/2019 Reported: 02/28/2019 Physicians: Clayton Pedroza M.D. Specimen(s) Received GALLBLADDER Clinical History Cholelithiasis, biliary colic Final Diagnosis GALLBLADDER, LAPAROSCOPIC CHOLECYSTECTOMY: CHRONIC CHOLECYSTITIS, CHOLESTEROLOSIS, AND CHOLELITHIASIS. Electronically Signed Deirdre Lutz M.D. Gross Description Received in formalin, labeled "gallbladder," is a 9.0 x 3.3 x 3.0 cm. gallbladder with a 0.2 cm. in length portion of cystic duct attached. The outer surface is rico-pink and varies from smooth to shaggy. The lumen contains rico, tenacious bile as well as 3 brown, irregular choleliths ranging from 0.9-2.5 cm in greatest dimension. The mucosa is brown-green, and displays focal erosions. The wall of the gallbladder averages 0.1 cm. in thickness. Allergy Nurse sections are submitted in one cassette. DL/02/25/2019 saudi02/25/2019
== END 2019-02-25 19:05 | disposition home or self-care (01) | DRG 419 ==
LOC: JER 03:11 → SUPCPDRO 03:11 → JERBED 09:31 → J6S 17:34
PROVIDERS: ADMIT Internal Medicine; ATTEND Internal Medicine
PROC: 0DNW4ZZ Release Peritoneum, Percutaneous Endoscopic Approach (ICD-10-PCS; 2019-02-24)
PROC: 3E1M38Z Irrigation of Peritoneal Cavity using Irrigating Substance, Percutaneous Approach (ICD-10-PCS; 2019-02-24)
PROC: 0FT44ZZ Resection of Gallbladder, Percutaneous Endoscopic Approach (ICD-10-PCS; principal; 2019-02-24 12:30)
DX: K80.00 Calculus of gallbladder with acute cholecystitis without obstruction (principal); I10 Essential (primary) hypertension; K66.0 Peritoneal adhesions (postprocedural) (postinfection); R42 Dizziness and giddiness; E66.9 Obesity, unspecified; Z68.32 Body mass index [BMI] 32.0-32.9, adult
CPT/HCPCS: 36415; 74177-TC; 76705-TC; 80048; 80053; 80061; 83036; 83690; 83721; 83735; 84100; 84484; 84702; 85025; 86850; 86900; 86901; 88304-TC; 93005; 93010; 94010; 94760; 97116-GP; 97161-GP; 99285-25; G0008; J0131; J7030; Q2036